=== PATIENT | male | born 1995 | race Caucasian/White ===

== ENCOUNTER → 2018-10-03 | Outpatient (CLI) | payer OTHER, BC ==
--- NOTE | 2018-10-03 16:00 | XR ---
EXAMINATION TYPE: XR lumbosacral spine min 4V DATE OF EXAM: 10/03/2018 CLINICAL HISTORY: Pain after fall injury 2 days ago. TECHNIQUE: Frontal, lateral, and oblique images of the lumbar spine are obtained. COMPARISON: None FINDINGS: There are 5 lumbar type vertebral bodies identified. The lumbar spine shows satisfactory alignment without evidence of acute fracture or dislocation. Mild to moderate disc space narrowing L5 -S1 level is present otherwise vertebral body heights and disk space heights are within normal limits . The oblique images appear within normal limits. The overlying soft tissue appears unremarkable. IMPRESSION: No acute fracture or dislocation is seen in the lumbar spine.
--- NOTE | 2018-10-03 16:01 | XR ---
EXAMINATION TYPE: XR ribs bilat w pa chest xray DATE OF EXAM: 10/03/2018 CLINICAL HISTORY: Chest and bilateral rib pain after fall injury 2 days ago. TECHNIQUE: Single frontal view of the chest is obtained. A frontal and oblique images of the bilatera l ribs are acquired. COMPARISON: None FINDINGS: There is no focal air space opacity, pleural effusion, or pneumothorax seen. The cardiac silhouette size is within normal limits. The osseous structures are intact. Dedicated images of bilateral ribs show no acute displaced fractures bilaterally. Overlying soft tiss ue is unremarkable. IMPRESSION: 1. No acute cardiopulmonary process. 2. No acute displaced rib fractures are evident bilaterally.
== END | disposition home or self-care (01) ==
LOC: RADXRYALE 15:36
PROVIDERS: ATTEND Physician Assistant Medical
DX: M54.5 Low back pain (principal); R07.9 Chest pain, unspecified
CPT/HCPCS: 71111; 72110

== ENCOUNTER → 2019-05-29 | Outpatient (CLI) | payer OTHER, BC ==
--- NOTE | 2019-05-29 11:31 | XR ---
EXAMINATION TYPE: XR lumbosacral spine min 4V DATE OF EXAM: 05/29/2019 CLINICAL HISTORY: Increasing low back pain after snowboarding injury 2 months ago. TECHNIQUE: Frontal, lateral, and oblique images of the lumbar spine are obtained. COMPARISON: Lumbar spine x-ray October 03, 2018 FINDINGS: There are 5 lumbar type vertebral bodies redemonstrated with sacralized L5 segment bilater ally. The lumbar spine shows stable and satisfactory alignment without definitive evidence of acute fracture or dislocation. Lucency from overlying bowel gas makes evaluation slightly suboptimal. Stabl e mild to moderate disc space narrowing L5-S1 level. Vertebral body heights and disk space heights ot herwise remain within normal limits. The oblique images remain within normal limits. IMPRESSION: No acute fracture or dislocation is seen in the lumbar spine. No significant change from prior. Bilateral sacralized L5 segment is noted to have some sclerosis at the bilateral assimilation with upper sacrum and may be source of pain in patient.
== END | disposition home or self-care (01) ==
LOC: RADXRYALE 11:10
PROVIDERS: ATTEND Physician Assistant Medical
DX: Q76.49 Other congenital malformations of spine, not associated with scoliosis (principal); G95.89 Other specified diseases of spinal cord
CPT/HCPCS: 72110

== ENCOUNTER 2019-06-18 13:13 | Emergency (ER) | payer OTHER, BC ==
[2019-06-18 14:46] VITALS: RESP 20
--- NOTE | 2019-06-18 14:59 | ED ---
General Adult HPI - General Chief complaint: Chest Pain Stated complaint: Chest pain Time Seen by Provider: 06/18/19 14:28 Source: patient, RN notes reviewed Mode of arrival: ambulatory Limitations: no limitations - History of Present Illness Initial comments: Patient is a pleasant 23-year-old male presenting to the emergency Department with complaints of chest discomfort. Patient states symptoms were last night. Patient smokes marijuana and approximate half an hour developed palpitations. Patient felt like his heart was beating fast and hard. Patient states there was also some pressure associated with it. Patient states also he was shaky, es pecially his left leg was shaky. Patient believes he may have had a panic attack. Patient was unable to get in to primary care physician today and therefore came to the emergency department. Patient woke at 4 AM and had some mild symptoms at that point. Those symptoms were not as severe and lasted even less time. The original symptoms lasted 10-15 minutes. Patient also admits to using cocaine on Tuesday however none since that time. Patient does not believe the marijuana was associated because he has been using that regularly for 6 years. - Related Data Allergies Allergy/AdvReac Type Severity Reaction Status Date / Time No Known Allergies Allergy Verified 06/18/19 13:42 Review of Systems ROS Statement: Those systems with pertinent positive or pertinent negative responses have been documented in the HPI. ROS Other: All systems not noted in ROS Statement are negative. Constitutional: Denies: fever Eyes: Denies: eye pain ENT: Denies: ear pain Respiratory: Denies: cough Cardiovascular: Reports: as per HPI, chest pain Endocrine: Denies: fatigue Gastrointestinal: Denies: abdominal pain Genitourinary: Denies: dysuria Musculoskeletal: Denies: back pain Skin: Denies: rash Neurological: Denies: weakness Past Medical History Past Medical History: No Reported History History of Any Multi-Drug Resistant Organisms: None Reported Past Surgical History: No Surgical Hx Reported Past Psychological History: No Psychological Hx Reported Smoking Status: Current every day smoker Past Alcohol Use History: None Reported, Rare Past Drug Use History: Cocaine, Marijuana General Exam Limitations: no limitations General appearance: alert, in no apparent distress Head exam: Present: normocephalic Eye exam: Present: normal appearance Neck exam: Present: normal inspection Respiratory exam: Present: normal lung sounds bilaterally. Absent: chest wall tenderness Cardiovascular Exam: Present: regular rate, normal rhythm Expanded Peripheral pulses: 2+: Radial (R), Radial (L), Posterior Tibialis (R), Posterior Tibialis (L), Dorsalis Pedis (R), Dorsalis Pedis (L) GI/Abdominal exam: Present: soft. Absent: tenderness Extremities exam: Present: normal inspection. 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 CA 120. QRS 92. QT 422. QTC 43. Normal axis. Normal QRS. No acute ST change. Medical Decision Making - Medical Decision Making Patient reevaluated and resting comfortably in bed, symptom-free at this time. Patient and mother updated on results and need for follow-up. Patient states his appointment with his primary care physician tomorrow and agrees to keep this. - Lab Data Result diagrams: 06/18/19 14:38 06/18/19 14:38 Lab Results 06/18/19 06/18/19 06/18/19 Range/Units 14:38 14:38 14:38 WBC 8.0 (3.8-10.6) k/uL RBC 4.91 (4.30-5.90) m/uL Hgb 14.7 (13.0-17.5) gm/dL Hct 44.3 (39.0-53.0) % MCV 90.2 (80.0-100.0) fL MCH 29.8 (25.0-35.0) pg MCHC 33.1 (31.0-37.0) g/dL RDW 12.2 (11.5-15.5) % Plt Count 233 (150-450) k/uL Neutrophils % 69 % Lymphocytes % 21 % Monocytes % 6 % Eosinophils % 2 % Basophils % 1 % Neutrophils # 5.5 (1.3-7.7) k/uL Lymphocytes # 1.7 (1.0-4.8) k/uL Monocytes # 0.5 (0-1.0) k/uL Eosinophils # 0.1 (0-0.7) k/uL Basophils # 0.1 (0-0.2) k/uL Sodium 139 (137-145) mmol/L Potassium 4.2 (3.5-5.1) mmol/L Chloride 106 (98-107) mmol/L Carbon Dioxide 22 (22-30) mmol/L Anion Gap 11 mmol/L BUN 16 (9-20) mg/dL Creatinine 0.82 (0.66-1.25) mg/dL Est GFR (CKD-EPI)AfAm >90 (>60 ml/min/1.73 sqM) Est GFR (CKD-EPI)NonAf >90 (>60 ml/min/1.73 sqM) Glucose 81 (74-99) mg/dL Calcium 9.7 (8.4-10.2) mg/dL Magnesium 1.8 (1.6-2.3) mg/dL Total Bilirubin 1.1 (0.2-1.3) mg/dL AST 21 (17-59) U/L ALT 16 (4-49) U/L Alkaline Phosphatase 62 (38-126) U/L Troponin I <0.012 (0.000-0.034) ng/mL Total Protein 7.7 (6.3-8.2) g/dL Albumin 4.8 (3.5-5.0) g/dL - Radiology Data Radiology results: image reviewed (Chest x-ray shows no acute process) Disposition Clinical Impression: Chest pain, Palpitations Disposition: HOME SELF-CARE Condition: Stable Instructions (If sedation given, give patient instructions): Chest Pain (ED), Heart Palpitations (ED) Additional Instructions: Please follow-up with primary care physician tomorrow as planned. Return for chest pain, difficult to breathing, increased heart rate mL worsening symptoms or other concerns. Avoid cocaine and marijuana. Is patient prescribed a controlled substance at d/c from ED?: No Referrals: Shyam Mckeon DO [Primary Care Provider] - 1-2 days Time of Disposition: 16:23
[2019-06-18 15:24] LABS: Basophils # (A) 0.1 k/uL (0-0.2); Basophils % (A) 1 %; Eosinophils # (A) 0.1 k/uL (0-0.7); Eosinophils % (A) 2 %; HCT 44.3 % (39.0-53.0); HGB 14.7 gm/dL (13.0-17.5); Lymphocytes # (A) 1.7 k/uL (1.0-4.8); Lymphocytes % (A) 21 %; MCH 29.8 pg (25.0-35.0); MCHC 33.1 g/dL (31.0-37.0); MCV 90.2 fL (80.0-100.0); Mean Platelet Volume 7.9; Monocytes # (A) 0.5 k/uL (0-1.0); Monocytes % (A) 6 %; Neutrophils # (A) 5.5 k/uL (1.3-7.7); Neutrophils % (A) 69 %; Platelet Count 233 k/uL (150-450); RBC 4.91 m/uL (4.30-5.90); RDW 12.2 % (11.5-15.5)
--- NOTE | 2019-06-18 15:28 | XR ---
EXAMINATION TYPE: XR chest 2V DATE OF EXAM: 06/18/2019 COMPARISON: 10/03/2018 HISTORY: Chest pain and hypertension TECHNIQUE: Frontal and lateral views of the chest are obtained. FINDINGS: There is no focal air space opacity, pleural effusion, or pneumothorax seen. The cardiac silhouette size is within normal limits. The osseous structures are intact. IMPRESSION: No acute cardiopulmonary process.
[2019-06-18 15:33] LABS: ALT 16 U/L (4-49); AST 21 U/L (17-59); African American GFR (CKD) >90 (>60 ml/min/1.73 sqM); Albumin 4.8 g/dL (3.5-5.0); Alkaline Phosphatase 62 U/L (38-126); Anion Gap 11 mmol/L; Blood Urea Nitrogen 16 mg/dL (9-20); Calcium 9.7 mg/dL (8.4-10.2); Carbon Dioxide 22 mmol/L (22-30); Chloride 106 mmol/L (98-107); Glucose 81 mg/dL (74-99); Magnesium 1.8 mg/dL (1.6-2.3); Non-African American GFR(CKD) >90 (>60 ml/min/1.73 sqM); Potassium 4.2 mmol/L (3.5-5.1); Sodium 139 mmol/L (137-145); Total Bilirubin 1.1 mg/dL (0.2-1.3); Total Protein 7.7 g/dL (6.3-8.2)
[2019-06-18 16:39] VITALS: BP 117/63; PULSE 55; TEMP 98
== END 2019-06-18 16:30 | disposition home or self-care (01) ==
LOC: EC 13:13
DX: R07.9 Chest pain, unspecified (principal); R00.2 Palpitations; F17.200 Nicotine dependence, unspecified, uncomplicated; F12.90 Cannabis use, unspecified, uncomplicated
CPT/HCPCS: 36415; 71046; 80053; 83735; 84484; 85025; 99285